=== PATIENT | female | born 1965 | race Caucasian/White ===

== ENCOUNTER → 2019-09-04 | Outpatient (CLI) | payer BC ==
[~2019-09-04] MED LIST: ASPIRIN 81M81 MG/TA2 PO; CARDI-OMEGA1000 MG PO; CLARITIN10 MG PO; COLACE 100100 MG/CAP PO; FISH OIL SUPER1 SGL PO; HYZAAR 50-12.1 UDTAB PO; MOTRIN 200200 MG/TAB PO; MULTIVITAMIN FO1 CAP PO; NORCO 325 MG-51 TAB PO; PREMARIN 1.251.25 MG PO; PYRIDIUM200 M1 PO; TENORMIN 5050 MG/TAB PO; TRANDATE 200MG200 MG PO; TYLENOL 500MG500 MG PO; VICODIN 5/5001 UDTAB PO
== END ==
LOC: MC.RAD 16:20
DX: Z12.31 Encounter for screening mammogram for malignant neoplasm of breast (principal); N63.21 Unspecified lump in the left breast, upper outer quadrant; N63.10 Unspecified lump in the right breast, unspecified quadrant

== ENCOUNTER → 2019-09-07 | Outpatient (CLI) | payer BC | LOC: MC.RAD 12:58 | DX: N63.20 Unspecified lump in the left breast, unspecified quadrant (principal) ==

== ENCOUNTER → 2021-02-24 | Outpatient (CLI) | payer BC | LOC: MC.RAD 14:27 | DX: Z12.31 Encounter for screening mammogram for malignant neoplasm of breast (principal) ==

== ENCOUNTER → 2022-02-25 | Outpatient (CLI) | payer BC | LOC: MC.RAD 07:51 | DX: Z12.31 Encounter for screening mammogram for malignant neoplasm of breast (principal) ==

== ENCOUNTER → 2024-03-23 | Outpatient (CLI) | payer BC | LOC: MC.RAD 08:07 | DX: Z12.31 Encounter for screening mammogram for malignant neoplasm of breast (principal) ==